=== PATIENT | female | born 1945 | race Hispanic/Latino ===

== ENCOUNTER 2017-11-10 04:45 | Emergency (ER) | payer MEDICARE ==
[2017-11-10 05:02] LABS: APPEARANCE,URINE Clear (CLEAR); BILIRUBIN,URINE Negative (NEGATIVE); COLOR,URINE Yellow (YELLOW); GLUCOSE, URINE (UA) Negative (NEGATIVE); KETONES,URINE Negative (NEGATIVE); LEUKOCYTE ESTERASE ,URINE Moderate (NEGATIVE); NITRATE,URINE Negative (NEGATIVE); OCCULT BLOOD,URINE Trace (NEGATIVE); PROTEIN,URINE Negative (NEGATIVE); UROBILINOGEN,URINE 0.2 mg/dL (0.2-1.0)
[2017-11-10 05:06] LABS: BASOPHILS % (AUTO) 1.2 % (0.0-5.0); EOSINOPHILS % (AUTO) 1.8 % (0.0-8.0); HEMATOCRIT 37.5 % (36-48); LYMPHOCYTES % (AUTO) 27.2 % (21.0-51.0); MEAN CORPUSCULAR HEMOGLOBIN 31.9 pg (27.0-33.0); MEAN CORPUSCULAR HGB CONC 35.5 g/dL (32.0-36.0); MEAN CORPUSCULAR VOLUME 89.7 fL (79-99); MONOCYTES % (AUTO) 8.7 % (3.0-13.0); NEUTROPHILS % (AUTO) 61.1 % (40.0-77.0); NUCLEATED RED BLOOD CELLS 0.1 % (0.0-0.19); PLATELET COUNT (AUTO) 230 K/uL (130-400); RED BLOOD CELL COUNT(AUTO) 4.18 MIL/uL (4.00-5.50); RED CELL DISTRIBUTION WIDTH 13.2 % (11.0-15.5); WHITE BLOOD COUNT (AUTO) 8.1 K/uL (4.8-10.8)
[2017-11-10 05:16] LABS: BACTERIA,URINE None Seen /HPF (None Seen); RBC,URINE 0-1 /HPF (0-1); SQUAMOUS EPITHELIAL CELL,UR Few /HPF (0-2)
[2017-11-10] MEDS ORDERED: KETOROLAC TROMETHAMINE 30MG/ML ONE (05:23)
[2017-11-10] MEDS ORDERED: SODIUM CHLORIDE 0.9% 1000ML 1,000 ML IV ONE (05:23)
[2017-11-10 05:24] LABS: CREATININE 0.7 mg/dL (0.5-1.5); POTASSIUM 3.7 mmol/L (3.5-5.1)
[2017-11-10 05:28] LABS: ALBUMIN 3.5 g/dL (3.5-5.0); BILIRUBIN,TOTAL 0.3 mg/dL (0.2-1.0); TOTAL PROTEIN, SERUM 7.2 g/dL (6.0-8.3)
[2017-11-10] MEDS ORDERED: CEFTRIAXONE SODIUM 1 GM ONE (05:46)
== END 2017-11-10 07:03 | disposition home or self-care (01) ==
LOC: EDH 04:45
DX: N10 Acute pyelonephritis (principal); I10 Essential (primary) hypertension; R06.02 Shortness of breath; E78.5 Hyperlipidemia, unspecified; E07.9 Disorder of thyroid, unspecified; Z90.710 Acquired absence of both cervix and uterus; Z98.890 Other specified postprocedural states
CPT/HCPCS: 36415; 71045; 76705; 80053; 81001; 82150; 83690; 85025; 87088; 96374; 96375; 99285; J0696; J1885; J7030; 96361

== ENCOUNTER 2020-02-21 07:29 | Day surgery (SDC) | payer MEDICARE ==
[2020-02-15 13:07] LABS: BASOPHILS % (AUTO) 0.8 % (0.0-5.0); EOSINOPHILS % (AUTO) 1.7 % (0.0-8.0); HEMATOCRIT 38.7 % (36-48); LYMPHOCYTES % (AUTO) 25.1 % (21.0-51.0); MEAN CORPUSCULAR HEMOGLOBIN 28.2 pg (27.0-33.0); MEAN CORPUSCULAR HGB CONC 32.8 g/dL (32.0-36.0); MEAN CORPUSCULAR VOLUME 85.8 fL (79-99); MONOCYTES % (AUTO) 8.4 % (3.0-13.0); NEUTROPHILS % (AUTO) 63.7 % (40.0-77.0); PLATELET COUNT (AUTO) 243 K/uL (130-400); RED BLOOD CELL COUNT(AUTO) 4.51 MIL/uL (4.00-5.50); RED CELL DISTRIBUTION WIDTH 15.2 % (11.0-15.5); WHITE BLOOD COUNT (AUTO) 7.7 K/uL (4.8-10.8)
[2020-02-15 13:11] LABS: BILIRUBIN,URINE NEGATIVE (NEGATIVE); COLOR,URINE YELLOW (YELLOW); GLUCOSE, URINE (UA) NEGATIVE (NEGATIVE); KETONES,URINE 5 mg/dL (NEGATIVE); LEUKOCYTE ESTERASE ,URINE MODERATE (NEGATIVE); NITRATE,URINE NEGATIVE (NEGATIVE); OCCULT BLOOD,URINE TRACE-INTACT (NEGATIVE); PH,URINE 6.5 (5.0-8.0); PROTEIN,URINE 30 mg/dL (NEGATIVE); UROBILINOGEN,URINE 0.2 mg/dL (0.2-1.0)
[2020-02-15 13:15] LABS: CREATININE 0.8 mg/dL (0.5-1.5); POTASSIUM 3.7 mmol/L (3.5-5.1)
[2020-02-15 13:24] LABS: APPEARANCE,URINE CLOUDY (CLEAR)
[2020-02-15 14:13] LABS: BACTERIA,URINE Moderate /HPF (None Seen); RBC,URINE 0-1 /HPF (0-1)
[2020-02-20 15:03] VITALS: BP 148/69
--- NOTE | 2020-02-20 16:28 | NUR ---
Called [facility] office and spoke to Deyanira about urine results of moderate leukest, wbc 11-25, ur squam 10-25and trace occult and cloudy, urine culture with >100,000, no new per md office.
[~2020-02-21] VITALS: Ht 154.9 cm; Wt 78.9 kg
[2020-02-21] VITALS (17 sets, daily range): BP systolic 104–155; BP diastolic 41–81
[~2020-02-21 07:29] MED LIST: DEXAMETHASONE SOD PHOSPHATE 10MG/ML 1ML VIAL ONE; FENTANYL CITRATE PF 50 MCG/1 ML 2ML VIAL ONE; GLIM1TAB18 PO; GLYCOPYRROLATE 1 MG/5 ML SYRINGE ONE; LEVO100T4 PO; LIDOCAINE PF 2% 5ML ABBOJECT ONE; LOSA1TAB54 PO; MIDAZOLAM HCL 1 MG/ML 2ML VIAL ONE; MVIT PO; NEOSTIGMINE 5MG/5ML SYR IV ONE; NIAC1CAP PO; NITR100C4 PO; ONDANSETRON HCL 4 MG/2 ML VIAL ONE; PROPOFOL 10 MG/ML 20ML VIAL IV ONE; ROCURONIUM 10MG/1ML SYR 10 MG/ML ML ONE; SODIUM CHLORIDE 0.9% 1000ML 1,000 ML IV ONE; SUCCINYLCHOLINE 200MG/10ML SYR ONE
[2020-02-21] MEDS ORDERED: DEXAMETHASONE SOD PHOSPHATE 10MG/ML 1ML VIAL ONE (07:30)
[2020-02-21] MEDS ORDERED: EPHEDRINE SULFATE 50 MG/ML AMPULE ONE (07:35)
--- NOTE | 2020-02-21 07:55 | NUR ---
CIARRA PIMENTEL CRNA MADE AWARE PT TOOK HER LOSARTAN/HCTZ THIS MORNING AND HE STATED TO GIVE NS 500 ML IV BOLUS.
[2020-02-21] MEDS ORDERED: BOTULINUM TOXIN TYPE A 100 UNITS/VIAL INJ PRN (08:00)
--- NOTE | 2020-02-21 08:15 | NUR ---
NS 500 ML STARTED AT THIS TIME.
[2020-02-21] MEDS: CEFTRIAXONE SODIUM 1 GM IVP ONE ×2 (08:44→09:00)
--- NOTE | 2020-02-21 10:48 | NUR ---
ASSESSMENT RECEIVED PT FROM PACU STAFF SABA HAILE. PT [id number]. DENIES ANY PAIN.
--- NOTE | 2020-02-21 11:15 | NUR ---
DISCHARGE ORAL AND WRITTEN DISCHARGE INSTRUCTIONS GIVEN TO PTS . INSTRUCTED PT ON IMPORTANCE OF FINISHING MACROBID. NO QUESTIONS AT THIS TIME.
== END 2020-02-21 11:20 | disposition home or self-care (01) ==
LOC: DAH 07:29
PROVIDERS: ATTEND Urology
DX: N39.41 Urge incontinence (principal); Z20.828 Contact with and (suspected) exposure to other viral communicable diseases; R35.0 Frequency of micturition; N30.80 Other cystitis without hematuria; N32.89 Other specified disorders of bladder; I10 Essential (primary) hypertension; E11.9 Type 2 diabetes mellitus without complications; E66.9 Obesity, unspecified; E03.9 Hypothyroidism, unspecified; M19.90 Unspecified osteoarthritis, unspecified site
CPT/HCPCS: 36415; 52287; 71045; 80048; 81001; 82948 ×2; 85025; 87088; 93005; A4215 ×2; A4221; A4222; A4223; A4358; A4600; A4663; C9803; J0330; J0585; J0696; J1100 ×2; J2001; J2250; J2405; J2704; J2710; J3010; J3490 ×2; J7030 ×2; U0003

== ENCOUNTER 2020-08-28 07:28 | Day surgery (SDC) | payer MEDICARE ==
[2020-08-22 10:55] VITALS: BP_SYST 161; BP_SYST 173; BP_DIAS 64; BP_DIAS 79
[2020-08-22 11:13] LABS: BASOPHILS % (AUTO) 1.1 % (0.0-5.0); EOSINOPHILS % (AUTO) 2.5 % (0.0-8.0); HEMATOCRIT 35.2 % (36-48); LYMPHOCYTES % (AUTO) 21.9 % (21.0-51.0); MEAN CORPUSCULAR HEMOGLOBIN 31.7 pg (27.0-33.0); MEAN CORPUSCULAR HGB CONC 34.4 g/dL (32.0-36.0); MEAN CORPUSCULAR VOLUME 92.1 fL (79-99); NEUTROPHILS % (AUTO) 65.2 % (40.0-77.0); PLATELET COUNT (AUTO) 226 K/uL (130-400); RED BLOOD CELL COUNT(AUTO) 3.82 MIL/uL (4.00-5.50); RED CELL DISTRIBUTION WIDTH 12.1 % (11.0-15.5); WHITE BLOOD COUNT (AUTO) 6.5 K/uL (4.8-10.8)
[2020-08-22 11:15] LABS: APPEARANCE,URINE Clear (CLEAR); BILIRUBIN,URINE Negative (NEGATIVE); COLOR,URINE Yellow (YELLOW); GLUCOSE, URINE (UA) Negative (NEGATIVE); KETONES,URINE Negative (NEGATIVE); LEUKOCYTE ESTERASE ,URINE Moderate (NEGATIVE); NITRATE,URINE Negative (NEGATIVE); OCCULT BLOOD,URINE Negative (NEGATIVE); PROTEIN,URINE Trace mg/dL (NEGATIVE); UROBILINOGEN,URINE 0.2 mg/dL (0.2-1.0)
[2020-08-22 11:24] LABS: CREATININE 0.7 mg/dL (0.5-1.5); POTASSIUM 3.6 mmol/L (3.5-5.1)
[2020-08-22 11:41] LABS: BACTERIA,URINE Rare /HPF (None Seen); RBC,URINE 0-1 /HPF (0-1); SQUAMOUS EPITHELIAL CELL,UR Rare /HPF (0-2)
[~2020-08-28] VITALS: Ht 154.9 cm; Wt 73.0 kg
[2020-08-28] VITALS (14 sets, daily range): BP systolic 112–144; BP diastolic 43–76
[2020-08-28] MEDS: CEFTRIAXONE 1G VIAL IVP SCH ×2 (06:00→08:50)
[~2020-08-28 07:28] MED LIST changes: +BOTULINUM TOXIN TYPE A 100 UNITS/VIAL INJ SCH; -DEXAMETHASONE SOD PHOSPHATE 10MG/ML 1ML VIAL ONE; -FENTANYL CITRATE PF 50 MCG/1 ML 2ML VIAL ONE; -GLIM1TAB18 PO; -GLYCOPYRROLATE 1 MG/5 ML SYRINGE ONE; +LATA7.5D OD; -LIDOCAINE PF 2% 5ML ABBOJECT ONE; +METF-444 PO; -MIDAZOLAM HCL 1 MG/ML 2ML VIAL ONE; -NEOSTIGMINE 5MG/5ML SYR IV ONE; -NIAC1CAP PO; -ONDANSETRON HCL 4 MG/2 ML VIAL ONE; -PROPOFOL 10 MG/ML 20ML VIAL IV ONE; -ROCURONIUM 10MG/1ML SYR 10 MG/ML ML ONE; -SODIUM CHLORIDE 0.9% 1000ML 1,000 ML IV ONE; -SUCCINYLCHOLINE 200MG/10ML SYR ONE; +TIMO5DRO35 OT
[2020-08-28] MEDS ORDERED: 0.9%NACL 1000ML 1,000 ML IV ONE (07:34)
[2020-08-28] MEDS ORDERED: GLYCOPYRROLATE 1 MG/5 ML SYRINGE ONE (08:05)
[2020-08-28] MEDS ORDERED: LIDOCAINE PF 100MG/5ML (2%) SYRINGE 5ML ONE (08:05)
[2020-08-28] MEDS ORDERED: DEXAMETHASONE SOD PHOSPHATE 10MG/ML 1ML VIAL ONE (08:05)
[2020-08-28] MEDS ORDERED: SUCCINYLCHOLINE 200MG/10ML SYR ONE (08:05)
[2020-08-28] MEDS ORDERED: MIDAZOLAM HCL 1 MG/ML 2ML VIAL ONE (08:05)
[2020-08-28] MEDS ORDERED: ONDANSETRON 4MG INJ ONE (08:05)
[2020-08-28] MEDS ORDERED: FENTANYL CITRATE PF 50 MCG/1 ML 2ML VIAL ONE (08:06)
[2020-08-28] MEDS ORDERED: PROPOFOL 10 MG/ML 20ML VIAL IV ONE (08:06)
[2020-08-28] MEDS ORDERED: NEOSTIGMINE 5MG/5ML SYR IV ONE (08:06)
[2020-08-28] MEDS ORDERED: ROCURONIUM 10MG/1ML SYR 10 MG/ML ML ONE (08:10)
== END 2020-08-28 10:30 | disposition home or self-care (01) ==
LOC: DAH 07:28
PROVIDERS: ATTEND Urology
DX: N39.41 Urge incontinence (principal); Z20.822 Contact with and (suspected) exposure to COVID-19; N32.89 Other specified disorders of bladder; N32.81 Overactive bladder; I10 Essential (primary) hypertension; E11.9 Type 2 diabetes mellitus without complications; M19.90 Unspecified osteoarthritis, unspecified site; F41.9 Anxiety disorder, unspecified; E03.9 Hypothyroidism, unspecified; Z79.84 Long term (current) use of oral hypoglycemic drugs; Z79.899 Other long term (current) drug therapy; Z79.890 Hormone replacement therapy
CPT/HCPCS: 36415; 52287; 80048; 81001; 82948 ×2; 85025; 87088; 93005; A4215 ×2; A4221; A4222; A4223; A4358; A4600; A4663; A6260; C9803; J0330; J0585; J0696; J1100; J2001; J2250; J2405; J2704; J2710; J3010; J3490; J7030; U0003

== ENCOUNTER 2022-01-28 08:08 | Day surgery (SDC) | payer MEDICARE ==
[2022-01-22 12:57] LABS: EOSINOPHILS % (AUTO) 2.5 % (0.0-8.0); HEMATOCRIT 37.4 % (36-48); LYMPHOCYTES % (AUTO) 26.6 % (21.0-51.0); MEAN CORPUSCULAR HEMOGLOBIN 30.2 pg (27.0-33.0); MONOCYTES % (AUTO) 8.9 % (3.0-13.0); NEUTROPHILS % (AUTO) 60.6 % (40.0-77.0); PLATELET COUNT (AUTO) 251 K/uL (130-400); RED CELL DISTRIBUTION WIDTH 13.3 % (11.0-15.5); WHITE BLOOD COUNT (AUTO) 7.9 K/uL (4.8-10.8)
[2022-01-22 13:06] LABS: APPEARANCE,URINE CLEAR (CLEAR); BILIRUBIN,URINE NEGATIVE (NEGATIVE); COLOR,URINE YELLOW (YELLOW); GLUCOSE, URINE (UA) NEGATIVE (NEGATIVE); KETONES,URINE NEGATIVE (NEGATIVE); LEUKOCYTE ESTERASE ,URINE TRACE (NEGATIVE); NITRATE,URINE POSITIVE (NEGATIVE); OCCULT BLOOD,URINE NEGATIVE (NEGATIVE); PROTEIN,URINE NEGATIVE (NEGATIVE); UROBILINOGEN,URINE 0.2 mg/dL (0.2-1.0)
[2022-01-22 13:08] LABS: CREATININE 0.7 mg/dL (0.5-1.5); POTASSIUM 3.5 mmol/L (3.5-5.1)
[2022-01-22 14:39] LABS: BACTERIA,URINE Moderate /HPF (None Seen); RBC,URINE 0-1 /HPF (0-1)
[2022-01-22 14:40] LABS: SQUAMOUS EPITHELIAL CELL,UR Rare /HPF (0-2)
[2022-01-22 15:01] VITALS: BP 160/78
[~2022-01-28] VITALS: Ht 154.9 cm; Wt 83.5 kg
[2022-01-28] VITALS (19 sets, daily range): BP systolic 96–160; BP diastolic 39–83
[~2022-01-28 08:08] MED LIST changes: +AMLO-257 PO; +FISH1CAP27 PO; +HYDR12.54 PO; -LOSA1TAB54 PO; +MACR100 PO; +METH1TAB30 PO; +MIRA50TA PO; -MVIT PO; +NAPR375T6 PO; -NITR100C4 PO; +PRAV20TA4 PO; +TIMO1DRO5 OU; -TIMO5DRO35 OT; +VALS320T16 PO
[2022-01-28] MEDS ORDERED: 0.9%NACL 1000ML 1,000 ML IV ONE (08:24)
[2022-01-28] MEDS: CEFTRIAXONE 1G VIAL IVP SCH ×2 (08:25→10:35)
[2022-01-28] MEDS ORDERED: FENTANYL CITRATE PF 50 MCG/1 ML 2ML VIAL ONE (10:25)
[2022-01-28] MEDS ORDERED: PROPOFOL 10 MG/ML 20ML VIAL IV ONE (10:25)
[2022-01-28] MEDS ORDERED: MIDAZOLAM HCL 1 MG/ML 2ML VIAL ONE (10:25)
[2022-01-28] MEDS ORDERED: GLYCOPYRROLATE 1 MG/5 ML SYRINGE ONE (10:41)
[2022-01-28] MEDS ORDERED: EPHEDRINE SULFATE 50 MG/ML AMPULE ONE (10:46)
[2022-01-28] MEDS ORDERED: DEXTROSE 50%-WATER 50 ML DISP.SYRIN IV ONE (11:33)
== END 2022-01-28 13:30 | disposition home or self-care (01) ==
LOC: DAH 08:08
PROVIDERS: ATTEND Urology
DX: N39.41 Urge incontinence (principal); R35.0 Frequency of micturition; I10 Essential (primary) hypertension; E66.9 Obesity, unspecified; N32.81 Overactive bladder; E03.9 Hypothyroidism, unspecified; M19.90 Unspecified osteoarthritis, unspecified site; Z79.899 Other long term (current) drug therapy
CPT/HCPCS: 80048; 85025; 87077; 87088; 87186; 87426; 81001; 36415; 93005; 52287; 82948 ×4; A6260; A4663; C1758; J3010; J3490 ×2; J7030; J7070; J0696; J2250; J2704; J0585; A4358; A4215 ×2; A4930; A4223; A4222; A4221; A4600

== ENCOUNTER 2023-02-24 08:30 | Day surgery (SDC) | payer MEDICARE ==
[2023-02-22 09:55] LABS: BASOPHILS # (AUTO) 0.06 K/uL (0.00-0.20); BASOPHILS % (AUTO) 0.8 % (0.0-5.0); EOSINOPHILS # (AUTO) 0.11 K/uL (0.00-0.70); EOSINOPHILS % (AUTO) 1.4 % (0.0-8.0); HEMATOCRIT 35.1 % (36-48); IMMATURE GRANULOCYTE ABSOLUTE 0.02 K/uL (0-1); LYMPHOCYTES # (AUTO) 1.5 K/uL (1.0-4.8); LYMPHOCYTES % (AUTO) 19.7 % (21.0-51.0); MEAN CORPUSCULAR HEMOGLOBIN 29.1 pg (27.0-33.0); MEAN CORPUSCULAR HGB CONC 33.6 g/dL (32.0-36.0); MEAN CORPUSCULAR VOLUME 86.5 fL (79-99); MONOCYTES # (AUTO) 0.7 K/uL (0.1-1.0); MONOCYTES % (AUTO) 8.8 % (3.0-13.0); NEUTROPHILS # (AUTO) 5.3 K/uL (1.8-7.7); PLATELET COUNT (AUTO) 226 K/uL (130-400); RED BLOOD CELL COUNT(AUTO) 4.06 MIL/uL (4.00-5.50); RED CELL DISTRIBUTION WIDTH 13.2 % (11.0-15.5); WHITE BLOOD COUNT (AUTO) 7.7 K/uL (4.8-10.8)
[2023-02-22 10:04] LABS: APPEARANCE,URINE CLEAR (CLEAR); BILIRUBIN,URINE NEGATIVE (NEGATIVE); COLOR,URINE LIGHT-YELLOW (YELLOW); GLUCOSE, URINE (UA) NEGATIVE (NEGATIVE); KETONES,URINE NEGATIVE (NEGATIVE); LEUKOCYTE ESTERASE ,URINE NEGATIVE Leu/uL (NEGATIVE); NITRATE,URINE NEGATIVE (NEGATIVE); OCCULT BLOOD,URINE NEGATIVE (NEGATIVE); PH,URINE 6.5 (5.0-8.0); PROTEIN,URINE NEGATIVE (NEGATIVE); UROBILINOGEN,URINE 0.2 mg/dL (0.2-1.0)
[2023-02-22 10:10] LABS: CREATININE 0.8 mg/dL (0.5-1.5); POTASSIUM 3.7 mmol/L (3.5-5.1)
[2023-02-22 10:11] LABS: INR < 0.93 (0.85-1.15); PROTHROMBIN TIME 10.1 SEC (9.6-11.6)
[2023-02-22 10:13] LABS: PARTIAL THROMBOPLASTIN TIME 25.7 SEC (26.3-35.5)
[2023-02-22 10:16] VITALS: BP 195/78; PULSE 80; RESP 20
[2023-02-22 10:21] LABS: ADD UA MICROSCOPIC NO
[2023-02-24] VITALS (17 sets, daily range): BP systolic 117–145; BP diastolic 54–65; PULSE 68–76; RESP 14–18
[~2023-02-24] VITALS: Ht 152.4 cm; Wt 82.9 kg
[~2023-02-24 08:30] MED LIST changes: -AMLO-257 PO; +AMMONIUM LACTATE TP; +BOTULINUM TOXIN TYPE A 100 UNITS/VIAL INJ ONE; -BOTULINUM TOXIN TYPE A 100 UNITS/VIAL INJ SCH; +DICL100G60 TP; -FISH1CAP27 PO; -LATA7.5D OD; +LATA7.5D OU; +OMEP40CA21 PO; -PRAV20TA4 PO; +ROSU20TA73 PO; -TIMO1DRO5 OU; +TIMO1DRO9 OU
[2023-02-24] MEDS ORDERED: CEFAZOLIN SODIUM 1 GM VIAL ONE (08:42)
[2023-02-24] MEDS ORDERED: 0.9%NACL 1000ML 1,000 ML IV ONE (08:42)
[2023-02-24] MEDS ORDERED: NITR100C4 PO (09:36)
[2023-02-24] MEDS ORDERED: CEFTRIAXONE 1G VIAL ONE (10:12)
[2023-02-24] MEDS ORDERED: PROPOFOL 10 MG/ML 20ML VIAL IV ONE (10:52)
[2023-02-24] MEDS ORDERED: FENTANYL CITRATE PF 50 MCG/1 ML 2ML VIAL ONE (10:52)
[2023-02-24] MEDS ORDERED: MIDAZOLAM HCL 1 MG/ML 2ML VIAL ONE (10:52)
[2023-02-24] MEDS ORDERED: LIDOCAINE PF 100MG/5ML (2%) SYRINGE 5ML ONE (10:52)
[2023-02-24] MEDS ORDERED: CEFAZOLIN SODIUM 2 GM VIAL IVPB ONE (12:31)
[2023-02-24] MEDS ORDERED: EPHEDRINE SULFATE 50 MG/ML AMPULE ONE (12:34)
[2023-02-24] MEDS ORDERED: ONDANSETRON 4MG INJ ONE (12:35)
[2023-02-24] MEDS ORDERED: DEXAMETHASONE SOD PHOSPHATE 10MG/ML 1ML VIAL ONE (12:35)
[2023-02-24] MEDS ORDERED: BOTULINUM TOXIN TYPE A 100 UNITS/VIAL INJ ONE (12:40)
== END 2023-02-24 14:25 | disposition home or self-care (01) ==
LOC: DAH 08:30
PROVIDERS: ATTEND Urology
DX: N39.41 Urge incontinence (principal); I10 Essential (primary) hypertension; M19.90 Unspecified osteoarthritis, unspecified site; E03.9 Hypothyroidism, unspecified; Z79.01 Long term (current) use of anticoagulants; Z79.899 Other long term (current) drug therapy
CPT/HCPCS: 80048; 85025; 85610; 85730; 87088; 81003; 36415; 93005; 52287; 82948 ×2; A4663; J7120; J3010; J1100; J7030; J2001; J3490; J0696; J2250; J2704; J2405; J0585 ×2; J0690; A4358; A4215 ×2; A4223; A4222; A4221; A4600

== ENCOUNTER 2023-08-25 06:57 | Day surgery (SDC) | payer MEDICARE ==
[2023-08-22 10:30] VITALS: PULSE 83; RESP 19
[2023-08-22 10:33] LABS: APPEARANCE,URINE CLEAR (CLEAR); BILIRUBIN,URINE NEGATIVE (NEGATIVE); COLOR,URINE COLORLESS (YELLOW); GLUCOSE, URINE (UA) NEGATIVE (NEGATIVE); KETONES,URINE NEGATIVE (NEGATIVE); LEUKOCYTE ESTERASE ,URINE NEGATIVE Leu/uL (NEGATIVE); NITRATE,URINE NEGATIVE (NEGATIVE); OCCULT BLOOD,URINE NEGATIVE (NEGATIVE); PH,URINE 6.5 (5.0-8.0); PROTEIN,URINE NEGATIVE (NEGATIVE); UROBILINOGEN,URINE 0.2 mg/dL (0.2-1.0)
[2023-08-22 10:33] LABS: CREATININE 0.5 mg/dL (0.5-1.0); POTASSIUM 4.1 mmol/L (3.5-5.1)
[2023-08-22 10:37] LABS: ADD UA MICROSCOPIC NO
[~2023-08-25] VITALS: Ht 152.4 cm; Wt 82.3 kg
[2023-08-25] VITALS (15 sets, daily range): BP systolic 129–157; BP diastolic 60–72; PULSE 72–89; RESP 12–19
[~2023-08-25 06:57] MED LIST changes: -AMMONIUM LACTATE TP; -BOTULINUM TOXIN TYPE A 100 UNITS/VIAL INJ ONE; -DICL100G60 TP; +FISH1CAP27 PO; -LEVO100T4 PO; +LEVO150T11 PO; -METF-444 PO; -METH1TAB30 PO; -NAPR375T6 PO; +NITR100C4 PO; -OMEP40CA21 PO
[2023-08-25] MEDS ORDERED: FAMOTIDINE 20MG VIAL IV ONE (07:40)
[2023-08-25] MEDS ORDERED: 0.9%NACL 10ML VIAL ONE (07:43)
[2023-08-25] MEDS ORDERED: PROPOFOL 10 MG/ML 20ML VIAL IV ONE (07:46)
[2023-08-25] MEDS ORDERED: LIDOCAINE PF 100MG/5ML (2%) SYRINGE 5ML ONE (07:46)
[2023-08-25] MEDS ORDERED: FENTANYL CITRATE PF 50 MCG/1 ML 2ML VIAL ONE (07:47)
[2023-08-25] MEDS ORDERED: BOTULINUM TOXIN TYPE A 100 UNITS/VIAL INJ SCH (08:00)
[2023-08-25] MEDS: 0.9%NACL 1000ML 1,000 ML IV ONE (08:42)
[2023-08-25] MEDS ORDERED: CEFTRIAXONE 1G VIAL ONE (09:04)
[2023-08-25] MEDS ORDERED: ONDANSETRON 4MG INJ ONE (09:10)
[2023-08-25] MEDS: BOTULINUM TOXIN TYPE A 100 UNITS/VIAL INJ ONE (09:10)
[2023-08-25] MEDS ORDERED: EPHEDRINE SULFATE 50 MG/ML AMPULE ONE (09:11)
== END 2023-08-25 11:00 | disposition home or self-care (01) ==
LOC: DAH 06:57
PROVIDERS: ATTEND Urology
DX: N39.41 Urge incontinence (principal); N32.89 Other specified disorders of bladder; N30.80 Other cystitis without hematuria; I10 Essential (primary) hypertension; K21.9 Gastro-esophageal reflux disease without esophagitis; M19.90 Unspecified osteoarthritis, unspecified site; E11.39 Type 2 diabetes mellitus with other diabetic ophthalmic complication; H42 Glaucoma in diseases classified elsewhere; E03.9 Hypothyroidism, unspecified; Z79.899 Other long term (current) drug therapy; Z79.01 Long term (current) use of anticoagulants; Z98.890 Other specified postprocedural states; Z98.891 History of uterine scar from previous surgery; Z90.710 Acquired absence of both cervix and uterus
CPT/HCPCS: 80048; 87077; 87088; 87186; 81003; 36415; 93005; 52287; 82948 ×2; A6260; A4663; J7120; J3490 ×2; J3010; J7030; J2001; J0696; J2704; J2405; J0585 ×2; A4358; A4215 ×2; A4223; A4222; A4221; A4600

== ENCOUNTER → 2024-09-10 | Outpatient (CLI) | payer MEDICARE ==
[~2024-09-10] MED LIST changes: -ROSU20TA73 PO; +ROSU20TA98 PO
--- NOTE | 2024-09-10 16:36 | HMCIMG ---
US CAROTID DUPLEX HISTORY: Essential hypertension COMPARISON: None TECHNIQUE: Duplex carotid arterial Doppler ultrasound study was performed. FINDINGS: The common, internal and external carotid arteries are visualized. The peak systolic velocities of right common carotid artery is 83 centimeters per second, right internal carotid artery is 108 centimeters per second, right external carotid artery is 145 centimeters per second, and right vertebral artery is 324 centimeters per second. Right internal carotid artery to right common carotid artery ratio is 1.3. Right vertebral artery is seen with antegrade flow. The peak systolic velocities of left common carotid artery is 80 centimeters per second, left internal carotid artery is 100 centimeters per second, left external carotid artery is 21 centimeters per second, and left vertebral artery is 48 centimeters per second. Left internal carotid artery to left common carotid artery ratio is 1.3. Left vertebral artery is seen with antegrade flow. There are bilateral echogenic plaques. IMPRESSION: 1. No hemodynamically significant lesion is seen of either extracranial carotid artery system.
== END | disposition home or self-care (01) ==
LOC: RAH 15:21
PROVIDERS: ATTEND Family Medicine
DX: I65.23 Occlusion and stenosis of bilateral carotid arteries (principal); I10 Essential (primary) hypertension; R42 Dizziness and giddiness
CPT/HCPCS: 93880